=== PATIENT | female | born 1980 | race African-American/Black ===

== ENCOUNTER 2020-11-10 04:16 | Emergency (ER) | payer OTHER ==
[~2020-11-10] VITALS: Ht 177.8 cm; Wt 56.2 kg
[2020-11-10] MEDS ORDERED: PROVENTIL HFA6.7 GM (04:31)
[2020-11-10] MEDS ORDERED: ZYRTEC10 MG PO (06:01)
[2020-11-10] MEDS ORDERED: SINGULAIR 10MG10 MG PO (06:01)
== END 2020-11-10 06:11 | disposition home or self-care (01) ==
LOC: ER 04:16
DX: J45.901 Unspecified asthma with (acute) exacerbation (principal)